=== PATIENT | female | born 1985 | race Caucasian/White ===

== ENCOUNTER 2017-02-06 08:00 | Outpatient (CLI) | payer OTHER ==
[2017-02-06 20:19] LABS: BASOPHILS # (AUTO) 0.1 10^3/uL (0.0-0.1); BASOPHILS % (AUTO) 0.6 %; EOSINOPHILS # (AUTO) 0.2 10^3/uL (0.0-0.7); EOSINOPHILS % (AUTO) 1.8 %; HCT - HEMATOCRIT 39.3 % (37.0-47.0); HGB - HEMOGLOBIN 13.3 g/dL (12.0-16.0); LYMPHOCYTES # (AUTO) 2.9 10^3/uL (1.5-3.5); LYMPHOCYTES % (AUTO) 32.9 %; MEAN CORPUSCULAR HEMOGLOBIN 30.9 pg (27.0-31.0); MEAN CORPUSCULAR HGB CONC 33.7 g/dL (32.0-36.0); MEAN CORPUSCULAR VOLUME 91.6 fL (81.0-99.0); MEAN PLATELET VOLUME 9.7 fL (7.9-10.8); MONOCYTES # (AUTO) 0.7 10^3/uL (0.0-1.0); NEUTROPHILS # (AUTO) 4.9 10^3/uL (1.5-6.6); NEUTROPHILS % (AUTO) 56.7 %; RED BLOOD COUNT 4.29 10^6/uL (4.20-5.40); RED CELL DISTRIBUTION WIDTH 12.6 % (12.0-15.0); UNCORRECTED WHITE BLOOD COUNT 8.7 x10^3/uL; WHITE BLOOD COUNT 8.7 x10^3/uL (4.8-10.8)
[2017-02-06 20:39] LABS: ALBUMIN/GLOBULIN RATIO 1.8 (1.0-2.2); BILIRUBIN,TOTAL 0.4 mg/dL (0.2-1.0); BUN - BLOOD UREA NITROGEN 19 mg/dL (6-20); CALCIUM 9.5 mg/dL (8.5-10.3); CARBON DIOXIDE - CO2 28 mmol/L (21-32); CHLORIDE 104 mmol/L (101-111); GFR - MDRD 65 (>89); GLUCOSE 86 mg/dL (70-100); SODIUM 141 mmol/L (135-145); TOTAL PROTEIN 7.3 g/dL (6.7-8.2)
[2017-02-06 20:41] LABS: IRON 66 ug/dL (28-170); TOTAL IRON BINDING CAPACITY 298 ug/dL (250-450); TRANSFERRIN 213 mg/dL (192-382)
[2017-02-06 20:43] LABS: THYROID STIMULATING HORMONE 2.22 uIU/mL (0.34-5.60)
[2017-02-06 20:48] LABS: FERRITIN 124.8 ng/mL (11.0-306.8)
== END 2017-02-06 08:01 | disposition home or self-care (01) ==
LOC: LAB.WCP 08:00
PROVIDERS: ATTEND Family Medicine
DX: N91.2 Amenorrhea, unspecified (principal); D50.9 Iron deficiency anemia, unspecified
CPT/HCPCS: 36415; 80050; 82728; 83540; 84403; 84466; 84703

== ENCOUNTER 2017-02-24 11:11 | Outpatient (CLI) | payer OTHER ==
--- NOTE | 2017-02-26 11:22 | Ultrasound Report ---
EXAM: PELVIC ULTRASOUND EXAM DATE: 02/24/2017 11:24 AM. CLINICAL HISTORY: Amenorrhea, unspecified. COMPARISON: None. TECHNIQUE: Realtime transabdominal pelvic scan performed to identify the uterus and adnexa and as an overview of other pelvic structures, followed by transvaginal scan to provide greater detail of the u terus and adnexa, with static image documentation. FINDINGS: Uterus: 5.9 x 1.9 x 3.0 cm, volume 17.6 cc. Anteverted position. Normal overall size and echotexture. Masses: None. Endometrium: 1.3 mm. Normal. Cervix: Unremarkable. Right Ovary: 2.1 x 1.2 x 1.5 cm, volume 1.9 cc. Normal echotexture and blood flow. Left Ovary: 1.6 x .85 x 1.2 cm, volume .85 cc. Normal echotexture and blood flow. Free Fluid: None. Other: The vaginal canal appears echogenic. Findings are of unclear significance but benign etiologie s like air and blood products are on the differential. IMPRESSION: 1. No uterine mass. 2. Endometrium measures 1.3 mm. Findings are nonspecific but could represent atrophy. No mass or poly p. 3. Both ovaries are normal. No adnexal lesions. [facility] Referring Provider Line: [phone] SITE ID: [id number]
== END 2017-02-24 11:12 | disposition home or self-care (01) ==
LOC: DI 11:11
PROVIDERS: ATTEND Family Medicine
DX: N91.2 Amenorrhea, unspecified (principal)
CPT/HCPCS: 76830; 76856

== ENCOUNTER 2017-09-17 05:47 | Emergency (ER) | payer BC ==
[2017-09-17 06:42] LABS: BASOPHILS % (AUTO) 0.6 %; EOSINOPHILS # (AUTO) 0.1 10^3/uL (0.0-0.7); HGB - HEMOGLOBIN 13.4 g/dL (12.0-16.0); LYMPHOCYTES # (AUTO) 1.6 10^3/uL (1.5-3.5); LYMPHOCYTES % (AUTO) 22.5 %; MEAN CORPUSCULAR HEMOGLOBIN 31.4 pg (27.0-31.0); MEAN CORPUSCULAR HGB CONC 33.5 g/dL (32.0-36.0); MEAN CORPUSCULAR VOLUME 93.7 fL (81.0-99.0); MEAN PLATELET VOLUME 8.6 fL (7.9-10.8); MONOCYTES # (AUTO) 0.7 10^3/uL (0.0-1.0); MONOCYTES % (AUTO) 9.1 %; NEUTROPHILS # (AUTO) 4.8 10^3/uL (1.5-6.6); NEUTROPHILS % (AUTO) 65.8 %; PLT - PLATELET COUNT 218 10^3/uL (130-450); RED BLOOD COUNT 4.28 10^6/uL (4.20-5.40); RED CELL DISTRIBUTION WIDTH 12.4 % (12.0-15.0); WHITE BLOOD COUNT 7.2 x10^3/uL (4.8-10.8)
[2017-09-17 06:59] LABS: BILIRUBIN,URINE NEGATIVE (NEGATIVE); GLUCOSE, URINE (UA) NEGATIVE (NEGATIVE); KETONES,URINE (UA) NEGATIVE (NEGATIVE); LEUKOCYTE ESTERASE, URINE TRACE (NEGATIVE); NITRITE,URINE NEGATIVE (NEGATIVE); OCCULT BLOOD,URINE NEGATIVE (NEGATIVE); PROTEIN,URINE NEGATIVE (NEGATIVE); UROBILINOGEN,URINE 0.2 (NORMAL) E.U./dL (NORMAL)
[2017-09-17 07:02] LABS: ALBUMIN 4.4 g/dL (3.2-5.5); ALBUMIN/GLOBULIN RATIO 1.6 (1.0-2.2); BILIRUBIN,TOTAL 0.8 mg/dL (0.2-1.0); CALCIUM 9.2 mg/dL (8.5-10.3); TOTAL PROTEIN 7.2 g/dL (6.7-8.2)
[2017-09-17 07:13] LABS: CLARITY,URINE CLEAR (CLEAR)
[2017-09-17 07:18] LABS: BACTERIA,URINE Few /HPF (None Seen); RBC,URINE 0-5 /HPF (0-5); SQUAMOUS EPITHELIAL CELL,UR MOD Squamous (<= Few)
--- NOTE | 2017-09-17 07:24 | ED Physician Documentation ---
History of Present Illness - Stated complaint Stated Complaint: NAUSEA,DIZZINESS - Chief complaint Chief Complaint: Neuro - Additonal information Additional information: hx from pt 32 f to ED with a month if sx - weak dizzy intense nausea - feels like morning sickness no pain no focal numbness or weakness amenorrhea has seen PMD for same has has labs and noted to have elevated prolactin level has MRI ordered and scheduled for this Wed is concerned about 2 things 1) want to confirm not opreg - her mothers urine tests were never + 2) the sx are more severe today and OTC meds arent helping Review of Systems Constitutional: denies: Fever, Chills Cardiac: denies: Chest pain / pressure GI: reports: Nausea, Vomiting : denies: Now EGA Neurologic: reports: Generalized weakness, Other (dizzy). denies: Focal weakness, Numbness, Headache Endocrine: denies: Easy bruising / bleeding Immunocompromised: denies: Immunocompromised PD PAST MEDICAL HISTORY - Past Medical History Past Medical History: No - Past Surgical History Past Surgical History: No - Present Medications Home Medications: Ambulatory Orders Medication Instructions Recorded Confirmed Meclizine [Antivert] 25 mg PO Q6H PRN #20 tablet 09/17/17 Ondansetron Odt [Zofran] 4 mg TL Q6H PRN #10 tablet 09/17/17 Pnv95/Ferrous Fumarate/FA 1 tab PO DAILY 09/17/17 09/17/17 [ Formula Tablet] diphenhydrAMINE [Benadryl] 1 tab PO PRN PRN 09/17/17 09/17/17 raNITIdine [Zantac] 1 tab PO DAILY 09/17/17 09/17/17 - Allergies Allergies/Adverse Reactions: Allergies Allergy/AdvReac Type Severity Reaction Status Date / Time No Known Drug Allergies Allergy Verified 09/17/17 05:59 - Social History Does the pt smoke?: Yes Smoking Status: Current every day smoker Does the pt drink ETOH?: Yes Does the pt have substance abuse?: No - Immunizations Immunizations are current?: Yes PD ED PE NORMAL - Vitals Vital signs reviewed: Yes - General General: Alert and oriented X 3 - HEENT HEENT: Atraumatic, PERRL, EOMI (nystagmus looking right), Ears normal - Neck Neck: Supple, no meningeal sign - Cardiac Cardiac: RRR - Respiratory Respiratory: No respiratory distress, Clear bilaterally - Abdomen Abdomen: Soft, Non tender - Derm Derm: Normal color - Extremities Extremities: No deformity - Neuro Neuro: Alert and oriented X 3, 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, No motor deficit, No sensory deficit, Normal speech Eye Opening: Spontaneous Motor: Obeys Commands Verbal: Oriented GCS Score: 15 Results - Vitals Vitals: Vital Signs - 24 hr 09/17/17 05:56 Temperature 37 C Heart Rate 86 Respiratory 18 Rate Blood Pressure 100/78 O2 Saturation 98 Oxygen O2 Source Room air - Labs Labs: Laboratory Tests 09/17/17 09/17/17 09/17/17 06:37 06:37 06:37 WBC 7.2 RBC 4.28 Hgb 13.4 Hct 40.1 MCV 93.7 MCH 31.4 H MCHC 33.5 RDW 12.4 Plt Count 218 MPV 8.6 Neut # (Auto) 4.8 Lymph # (Auto) 1.6 Greer # (Auto) 0.7 Eos # (Auto) 0.1 Baso # (Auto) 0.0 Absolute Nucleated RBC 0.00 Nucleated RBC % 0.0 Sodium 138 Potassium 4.0 Chloride 103 Carbon Dioxide 26 Anion Gap 9.0 BUN 17 Creatinine 1.0 Estimated GFR (MDRD) 65 L Glucose 98 Calcium 9.2 Magnesium 2.0 Total Bilirubin 0.8 AST 17 ALT 14 Alkaline Phosphatase 47 Total Protein 7.2 Albumin 4.4 Globulin 2.8 Albumin/Globulin Ratio 1.6 Lipase 29 HCG, Quant < 0.60 Urine Color Urine Clarity Urine pH Ur Specific [place] Urine Protein Urine Glucose (UA) Urine Ketones Urine Occult Blood Urine Nitrite Urine Bilirubin Urine Urobilinogen Ur Leukocyte Esterase Urine RBC Urine WBC Ur Squamous Epith Cells Urine Bacteria Ur Microscopic Review Urine Culture Comments 09/17/17 06:45 WBC RBC Hgb Hct MCV MCH MCHC RDW Plt Count MPV Neut # (Auto) Lymph # (Auto) [place] # (Auto) Eos # (Auto) Baso # (Auto) Absolute Nucleated RBC Nucleated RBC % Sodium Potassium Chloride Carbon Dioxide Anion Gap BUN Creatinine Estimated GFR (MDRD) Glucose Calcium Magnesium Total Bilirubin AST ALT Alkaline Phosphatase Total Protein Albumin Globulin Albumin/Globulin Ratio Lipase HCG, Quant Urine Color YELLOW Urine Clarity CLEAR Urine pH 6.0 Ur Specific [place] 1.025 Urine Protein NEGATIVE Urine Glucose (UA) NEGATIVE Urine Ketones NEGATIVE Urine Occult Blood NEGATIVE Urine Nitrite NEGATIVE Urine Bilirubin NEGATIVE Urine Urobilinogen 0.2 (NORMAL) Ur Leukocyte Esterase TRACE H Urine RBC 0-5 Urine WBC 0-3 Ur Squamous Epith Cells MOD Squamous H Urine Bacteria Few Ur Microscopic Review INDICATED Urine Culture Comments NOT INDICATED PD MEDICAL DECISION MAKING - Sepsis Event Vital Signs: Vital Signs - 24 hr 09/17/17 05:56 Temperature 37 C Heart Rate 86 Respiratory 18 Rate Blood Pressure 100/78 O2 Saturation 98 Oxygen O2 Source Room air Departure - Departure Disposition: Home, Self Care Clinical Impression: Vertigo Condition: Good Instructions: ED Dizziness [facility] Follow-Up: Missy Ag DO [Primary Care Provider] - Prescriptions: Meclizine [Antivert] 25 mg PO Q6H PRN #20 tablet PRN Reason: Dizziness Ondansetron Odt [Zofran] 4 mg TL Q6H PRN #10 tablet PRN Reason: Nausea / Vomiting Comments: The blood test was negative Please follow up for the MRI Wed as scheduled I have prescribed medications to ease your symptoms Forms: Activity restrictions
[2017-09-17] MEDS: MECLIZINE 12.5 MG TABLET PO STA (07:29)
[2017-09-17] MEDS: ONDANSETRON ODT 4 MG TABLET TL STA (07:29)
[2017-09-17 07:52] VITALS: BP 103/74
== END 2017-09-17 07:50 | disposition home or self-care (01) ==
LOC: ED 05:47
DX: R42 Dizziness and giddiness (principal); R11.0 Nausea; Z32.02 Encounter for pregnancy test, result negative; F17.200 Nicotine dependence, unspecified, uncomplicated
CPT/HCPCS: 36415; 80053; 81001; 83690; 83735; 84702; 85025; 99283; A9270; Q0162; 81003; 81025; 87086

== ENCOUNTER 2017-09-19 09:50 | Outpatient (CLI) | payer BC ==
[2017-09-19] MEDS ORDERED: GADOBUTROL 7.5 MMOL/7.5 ML VIAL ONE (10:24)
[2017-09-19] MEDS ORDERED: GADOBUTROL 7.5 MMOL/7.5 ML VIAL IVP ONE (11:26)
--- NOTE | 2017-09-20 14:15 | MRI Report ---
Procedure Date: 09/19/2017 Accession Number: [id number] / [id number] Procedure: MRI - Brain W/WO CPT Code: FULL RESULT: EXAM: MRI BRAIN AND PITUITARY WITHOUT AND WITH CONTRAST. EXAM DATE: 09/19/2017 11:20 AM. CLINICAL HISTORY: HYPERPROLACTINEMIA, AMENORRHEA. COMPARISON: MR brain 01/07/2014. TECHNIQUE: Multiplanar, multisequence T1-weighted and fluid-sensitive MR sequences of the brain and pituitary were performed. Other: None. IV Contrast: 7.5 cc GADAVIST. FINDINGS: Brain Volume: Normal for age. Parenchyma: No masses, infarcts, or hemorrhage. No white matter lesions identified. No abnormal enhancement. Pituitary: The sella appears normal. There is a T1/T2 hyperintense mass lesion that demonstrates heterogenous hypoenhancement on postcontrast sequences that measures 1.4 x 1.1 x 1.3 cm (cc by TRV by AP) increased in size from MR of 01/07/2014. There is evidence of layering susceptibility artifact along the posterior aspect of the mass lesion. There is slight suprasellar extension but no evidence of mass effect of the overlying optic structures. The pituitary infundibulum is deviated to the right. Cavernous sinuses appear normal. Ventricles/cisterns: No hydrocephalus. No abnormal extra-axial fluid collection or hemorrhage. Orbits: Symmetric and unremarkable. IAC: Symmetric and unremarkable. Vasculature: Normal signal flow void is seen in the major arterial structures at the skull base. The dural sinuses are patent and enhance normally. Sinuses: No acute sinus disease. Bones: No focal pathologic appearing marrow signal changes. Other: None. IMPRESSION: 1. There is a T1/T2 hyperintense mass lesion that demonstrates heterogenous hypoenhancement on postcontrast sequences that measures 1.4 x 1.1 x 1.3 cm (cc by TRV by AP) increased in size from MR of 01/07/2014. There is evidence of layering susceptibility artifact along the posterior aspect of the mass lesion. There is slight suprasellar extension but no evidence of mass effect of the overlying optic structures. 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 Given absence of hemosiderin deposition possibility of pituitary apoplexy cannot be excluded. Clinical correlation is suggested. 2. No acute infarct, parenchymal hemorrhage, additional mass, hydrocephalus, midline shift, or additional areas of abnormal postcontrast enhancement. [facility] The above findings were discussed with Missy Ag by Dr. Meliton Ball at 14:14 hrs on 09/20/17.
== END 2017-09-19 09:51 | disposition home or self-care (01) ==
LOC: DI 09:50
PROVIDERS: ATTEND Family Medicine
DX: E23.7 Disorder of pituitary gland, unspecified (principal)
CPT/HCPCS: 70553; A9585

== ENCOUNTER 2018-01-09 09:20 | Outpatient (CLI) | payer MEDICAID ==
--- NOTE | 2018-01-09 16:46 | Ultrasound Report ---
Reason: ENCTR FOR TEST, RESULT POSITIVE Procedure Date: 01/09/2018 Accession Number: [id number] / [id number] Procedure: US - OB First Trimester CPT Code: FULL RESULT: EXAM: FIRST TRIMESTER OBSTETRIC ULTRASOUND (Less than 11 weeks) EXAM DATE: 01/09/2018 10:38 AM. CLINICAL HISTORY: Encounter for test, result positive. LMP: Unknown. COMPARISONS: 01/09/2018 11:01 AM. TECHNIQUE: Transabdominal and transvaginal ultrasound examination with static image documentation. CLINICAL DATES: EGA 6 weeks 0 days with LIZY 09/04/2018 based on current ultrasound crown-rump length. ASSESSMENT: Gestational Sac: Single intrauterine. Mean gestational sac diameter: 30 mm = 7 weeks 6 days. Embryo: CRL (crown-rump length) 2.1 mm = 6 weeks 0 days. Cardiac activity: 80 beats per minute. Yolk sac: 2.3 mm. Amniotic fluid: Not accurately assessed at this gestational age. Early placenta: Not visible at this gestational age. Other: No perigestational fluid collection demonstrated. MATERNAL STRUCTURES: Uterus: Anteverted. Unremarkable. Cervix: Closed. Right Ovary/Adnexa: The ovary measures 2 x 1.9 x 2.3 cm, volume 4.6 cc. Unremarkable. Left Ovary/Adnexa: The ovary measures 1.4 x 1.3 x 1.3 cm, volume 1.2 cc. Unremarkable. Free Fluid: None. Other: None. IMPRESSION: 1. Single viable intrauterine at EGA 6 weeks 0 days with LIZY 09/04/2018 based on crown-rump length. 2. Assigned dating is LIZY 09/04/2018 based on current ultrasound. [facility]
== END 2018-01-09 09:21 | disposition home or self-care (01) ==
LOC: DI 09:20
PROVIDERS: ATTEND Nurse Practitioner Obstetrics & Gynecology
DX: Z32.01 Encounter for pregnancy test, result positive (principal); N91.2 Amenorrhea, unspecified
CPT/HCPCS: 76801; 76817